=== PATIENT | female | born 2000 | race Caucasian/White ===

== ENCOUNTER 2023-07-08 06:47 | Outpatient (REF) | payer OTHER, SELFPAY ==
--- NOTE | ~2023-07-08 | XR_ITS ---
EXAMINATION: XR ELBOW, LEFT CLINICAL INFORMATION: Pain COMPARISON: None available. TECHNIQUE: Three views of the left elbow. FINDINGS: Non displaced intra-articular fracture of the radial head. Displacement of the anterior fat pad compatible with joint effusion. Joint spaces are maintained. Soft tissues are otherwise unremarkable. XR/XR elbow LT min 3V IMPRESSION: 1. Non displaced intra-articular fracture of the radial head with displacement of the anterior fat pad compatible with joint effusion.
== END 2023-07-08 06:48 | disposition home or self-care (01) ==
LOC: HO.HOSX 06:47
PROVIDERS: Visit Provider Physician Assistant
DX: S52.125A Nondisplaced fracture of head of left radius, initial encounter for closed fracture (principal)
CPT/HCPCS: 73080

== ENCOUNTER 2023-07-08 13:29 | Outpatient (AMB) | payer OTHER, SELFPAY ==
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
[2023-07-08 13:42] VITALS: BMI 21.1
== END 2023-07-08 14:02 | disposition home or self-care (01) ==
PROVIDERS: Visit Provider Physician Assistant
DX: S52.125A Nondisplaced fracture of head of left radius, initial encounter for closed fracture (principal)
CPT/HCPCS: 99203

== ENCOUNTER 2023-08-22 10:16 | Outpatient (REF) | payer OTHER, SELFPAY | END 2023-08-22 10:17 | disposition home or self-care (01) | LOC: HO.HOSX 10:16 | PROVIDERS: Visit Provider Physician Assistant | DX: Z13.89 Encounter for screening for other disorder (principal) ==